=== PATIENT | female | born 1995 | race Caucasian/White ===

== ENCOUNTER 2016-12-25 14:01 | Emergency (ER) | payer SELFPAY ==
[2016-12-25 14:08] VITALS: BP 106/80; PULSE 82; TEMP 98.2; BMI 25.2
[2016-12-25 14:33] LABS: URINE APPEARANCE CLOUDY; URINE BILIRUBIN NEGATIVE (NEGATIVE); URINE BLOOD 1+ (NEGATIVE); URINE COLOR AMBER; URINE GLUCOSE (UA) NEGATIVE (NEGATIVE); URINE KETONE NEGATIVE (NEGATIVE); URINE NITRITE NEGATIVE (NEGATIVE)
--- NOTE | 2016-12-25 14:33 | PDOC ---
History of Present Illness - General Chief Complaint: [facility] Stated Complaint: ,TEST Time Seen by Provider: 12/25/16 14:11 - History of Present Illness Initial Comments: 12/25/16 14:47 CHIEF COMPLAINT: HISTORY OF PRESENT ILLNESS: 21 yo F with no significant PMH [facility] discomfort. Patient states "I think I might be ." Patient states LMP was 11/23/16. Patient states she used to have irregular periods "but this is like the fourth time it would be coming in a row. " She denies any nausea, vomiting, vaginal bleeding. No recent travel or sick contacts. PAST MEDICAL HISTORY: Denies past medical history FAMILY HISTORY: Denies SOCIAL HISTORY:Denies tobacco, alcohol, illicit drug use. SURGICAL HISTORY: Denies ALLERGIES: No known drug allergies REVIEW OF SYSTEMS General/Constitutional: Denies fever or chills. Denies weakness, weight change. Gastrointestinal: Lower abdominal pain, "like cramping." Denies nausea, vomiting , diarrhea or constipation. Denies rectal bleeding. Genitourinary: Denies dysuria, frequency, or change in urination. Musculoskeletal: Denies joint or muscle swelling or pain. Denies neck or back pain. PHYSICAL EXAM General Appearance: Well-appearing, appropriately dressed. No apparent distress. HEENT: EOMI, PERRLA. No conjunctival pallor. No photophobia, scleral icterus. Respiratory/Chest: Lungs CTAB. Cardiovascular: RRR. S1, S2. Gastrointestinal/Abdominal: Normal bowel sounds. Abdomen soft, non-distended. No tenderness or rebound tenderness. No organomegaly, pulsatile mass, guarding , hernia, hepatomegaly, splenomegaly. Musculoskeletal/Extremities: Normal inspection. FROM of all extremities, normal capillary refill. Pelvis Stable. No CVA tenderness. No tenderness to extremities, pedal edema, swelling, erythema or deformity. Integumentary: Appropriate color, dry, warm. 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 Fully oriented, alert. Appropriate mood/affect. Motor strength 5/5. No appreciable EOM palsy, facial droop or sensory deficit. Past History - Past Medical History Allergies/Adverse Reactions: Allergies Allergy/AdvReac Type Severity Reaction Status Date / Time No Known Allergies Allergy Verified 12/25/16 14:04 Home Medications: Ambulatory Orders NK [No Known Home Medication] 10/11/15 Anemia: Yes CVA: No COPD: No - Immunization History Immunization Up to Date: Yes - Suicide/Smoking/Psychosocial Hx Smoking History: Never smoked Have you smoked in the past 12 months: No Information on smoking cessation initiated: No Hx Alcohol Use: No Drug/Substance Use Hx: No Substance Use Type: None *Physical Exam - Vital Signs Last Vital Signs Temp Pulse Resp BP Pulse Ox 98.2 F 82 16 106/80 100 12/25/16 14:04 12/25/16 14:04 12/25/16 14:04 12/25/16 14:04 12/25/16 14:04 Medical Decision Making - Medical Decision Making 12/25/16 14:52 21 yo F with no significant PMH [facility] with [facility] discomfort. -UA, UCx, Upreg test negative. UA positive for hematuria. Discussed with patient she may starting her period as it has been a month since her last period. Advised patient of signs and symptoms for return to ER; patient verbalized understanding and agrees to plan. *DC/Admit/Observation/Transfer Diagnosis at time of Disposition: Abdominal pain Qualifiers: Abdominal location: lower abdomen, unspecified Qualified Code(s): R10.30 - Lower abdominal pain, unspecified - Referrals - Patient Instructions Printed Discharge Instructions: Myths and Truths About the Menstrual Cycle, Painful Menstrual Periods Additional Instructions: Your test was negative today. As discussed, you may take ibuprofen for your abdominal cramping. If pain persists for more than a week, please follow up with your OBGYN. If you develops any significant vaginal bleeding ( more than one soaked pad an hour), severe pain to one side of your stomach, or any new or worsening symptoms, please return to the ER. - Post Discharge Activity
[2016-12-25 14:34] LABS: URINE PROTEIN 1+ (NEGATIVE)
[2016-12-25 14:37] LABS: URINE MUCUS MANY; URINE RBC 17; URINE WBC 3
[2016-12-25 18:01] LABS: URINE LEUK ESTERASE Negative (NEGATIVE)
== END 2016-12-25 14:58 | disposition home or self-care (01) ==
LOC: JERFT 14:01
DX: R10.30 Lower abdominal pain, unspecified (principal); Z32.02 Encounter for pregnancy test, result negative
CPT/HCPCS: 81003; 81015; 84703; 87086; 99281-25

== ENCOUNTER 2017-03-08 21:49 | Emergency (ER) | payer SELFPAY ==
[2017-03-08 23:10] VITALS: BP 92/62; PULSE 86; TEMP 98.9; BMI 23.2
[2017-03-09] MEDS ORDERED: IBUPROFEN 400 MG TABLET (FP) PO ONE ×2 (00:33→00:34)
--- NOTE | 2017-03-09 00:33 | PDOC ---
History of Present Illness - General Chief Complaint: Chest Pain Stated Complaint: CHEST TIGHTNESS Time Seen by Provider: 03/09/17 00:16 History Source: Patient Exam Limitations: No Limitations - History of Present Illness Travel History: No Initial Comments: 03/09/17 00:54 21-year-old female with no medical history presents to the emergency department complaining of right sided anterior chest discomfort. Pain is described as 4/10 dull nonradiating intermittent discomfort 3 days. The pain is exacerbated on deep inspiration and alleviated at rest. Patient denies nausea/vomiting, fever/ chills, headache, dizziness, lightheadedness, facial pain, rhinorrhea, nasal congestion, earaches, cough, sore throat, neck stiffness/pain, back pains, shortness of breath, abdominal pains, flank pains, urinary symptoms. Patient states the pain today is 3/10 dull non radiating discomfort but has had 5/10 dull pain recent pain 3 days ago. 03/09/17 01:28 Reassessed: Pt states after the Motrin, she feels fine. Timing/Duration: reports: intermittent Past History - Past Medical History Allergies/Adverse Reactions: Allergies Allergy/AdvReac Type Severity Reaction Status Date / Time No Known Allergies Allergy Verified 12/25/16 14:04 Home Medications: Ambulatory Orders NK [No Known Home Medication] 10/11/15 Anemia: Yes CVA: No COPD: No - Immunization History Immunization Up to Date: Yes - Suicide/Smoking/Psychosocial Hx Smoking History: Never smoked Have you smoked in the past 12 months: No Information on smoking cessation initiated: No Hx Alcohol Use: No Drug/Substance Use Hx: No Substance Use Type: None Review of Systems - Review of Systems Able to Perform ROS?: Yes Comments:: 03/09/17 00:55 CONSTITUTIONAL: Absent: fever, chills, diaphoresis, generalized weakness, malaise, loss of appetite HEENT: Absent: rhinorrhea, nasal congestion, throat pain, throat swelling, difficulty swallowing, mouth swelling, ear pain, eye pain, visual Changes CARDIOVASCULAR: +chest pain Absent: loss of consciousness, palpitations, irregular heart rate, peripheral edema RESPIRATORY: Absent: cough, shortness of breath, dyspnea with exertion, orthopnea, wheezing, stridor, hemoptysis GASTROINTESTINAL: Absent: abdominal pain, abdominal distension, nausea, vomiting, diarrhea, constipation, melena, hematochezia GENITOURINARY: Absent: dysuria, frequency, urgency, hesitancy, hematuria, flank pain, genital pain MUSCULOSKELETAL: Absent: myalgia, arthralgia, joint swelling SKIN: Absent: rash, itching, pallor HEMATOLOGIC/IMMUNOLOGIC: Absent: easy bleeding, easy bruising, lymphadenopathy, frequent infections ENDOCRINE: Absent: unexplained weight gain, unexplained weight loss, heat intolerance, cold intolerance Is the patient limited Irish proficient: No *Physical Exam - Vital Signs Last Vital Signs Temp Pulse Resp BP Pulse Ox 98.9 F 86 18 92/62 100 03/08/17 22:53 03/08/17 22:53 03/08/17 22:53 03/08/17 22:53 03/08/17 22:53 - Physical Exam Comments: 03/09/17 00:55 GENERAL: Well developed, well nourished. Awake and alert. No acute distress. HEENT: Normocephalic, atraumatic. PERRLA, EOMI. No conjunctival pallor. Sclera are non- icteric. Moist mucous membranes. Oropharynx is clear. NECK: Supple. Full ROM. No JVD. Carotid pulses 2+ and symmetric, without bruits. No thyromegaly. No lymphadenopathy. CARDIOVASCULAR: Regular rate and rhythm. No murmurs, rubs, or gallops. Distal pulses are 2+ and symmetric. PULMONARY: No evidence of respiratory distress. Lungs clear to auscultation bilaterally. No wheezing, rales or rhonchi. ABDOMINAL: Soft. Non-tender. Non-distended. No rebound or guarding. No organomegaly. Normoactive bowel sounds. MUSCULOSKELETAL Normal range of motion at all joints. No bony deformities or tenderness. No CVA tenderness. EXTREMITIES: No cyanosis. No clubbing. No edema. No calf tenderness. SKIN: Warm and dry. Normal capillary refill. No rashes. No jaundice. *DC/Admit/Observation/Transfer Diagnosis at time of Disposition: Chest pain, muscular - Discharge Dispostion Disposition: HOME Condition at time of disposition: Stable Admit: No - Referrals - Patient Instructions Printed Discharge Instructions: DI for Atypical Chest Pain Additional Instructions: Rest Increased fluids Tylenol alternating with Motrin as needed for pain Return to the ER for severe/persistent/worsening symptoms - Post Discharge Activity
--- NOTE | 2017-03-10 14:08 | EKG ---
Test Reason : Blood Pressure : / mmHG Vent. Rate : 081 BPM Atrial Rate : 081 BPM P-R Int : 108 ms QRS Dur : 074 ms QT Int : 356 ms P-R-T Axes : 052 055 021 degrees QTc Int : 413 ms SINUS RHYTHM WITH SINUS ARRHYTHMIA WITH SHORT [place] CANNOT RULE OUT ANTERIOR INFARCT , AGE UNDETERMINED ABNORMAL ECG WHEN COMPARED WITH ECG OF 12-MAY-2012 14:10, NO SIGNIFICANT CHANGE WAS FOUND Confirmed by JAN ISAACS MD ([id number]) on 03/10/2017 2:08:20 PM Referred By: Confirmed By:JAN ISAACS MD
== END 2017-03-09 01:31 | disposition home or self-care (01) ==
LOC: JERFT 21:49
DX: R07.9 Chest pain, unspecified (principal)
CPT/HCPCS: 93005; 93010; 99281-25

== ENCOUNTER 2017-03-27 13:43 | Emergency (ER) | payer SELFPAY ==
[2017-03-27 13:47] VITALS: BP 105/65; PULSE 87; TEMP 98.1; BMI 24.2
[2017-03-27 15:14] LABS: HCG,QUALITATIVE URINE NEGATIVE; URINE APPEARANCE CLEAR; URINE BILIRUBIN NEGATIVE (NEGATIVE); URINE BLOOD NEGATIVE (NEGATIVE); URINE COLOR AMBER; URINE GLUCOSE (UA) NEGATIVE (NEGATIVE); URINE KETONE NEGATIVE (NEGATIVE); URINE LEUK ESTERASE NEGATIVE (NEGATIVE); URINE NITRITE NEGATIVE (NEGATIVE); URINE PROTEIN NEGATIVE (NEGATIVE)
--- NOTE | 2017-03-27 15:42 | PDOC ---
History of Present Illness - General Chief Complaint: ,Possible Stated Complaint: LAB VARIANCE Time Seen by Provider: 03/27/17 15:06 History Source: Patient Exam Limitations: No Limitations - History of Present Illness Initial Comments: 03/27/17 16:10 Patient is a 21-year-old female with no past medical history presents to the emergency department with 2 days of nausea and vomiting patient states she believes she may be . Last menstrual period was 02/28/2017 denies dysuria, hematuria, frequency, urgency, diarrhea, cough. Patient states that she also feels like her blood counts may be low and is requesting a CBC to check her anemia at this time. Past History - Travel Traveled outside of the country in the last 30 days: No Close contact w/someone who was outside of country & ill: No - Past Medical History Allergies/Adverse Reactions: Allergies Allergy/AdvReac Type Severity Reaction Status Date / Time No Known Allergies Allergy Verified 03/27/17 13:45 Home Medications: Ambulatory Orders Ondansetron [Zofran Odt -] 4 mg SL TID #10 od.tablet 03/27/17 Anemia: Yes CVA: No COPD: No Other medical history: OVARIAN CYSTS. - Immunization History Immunization Up to Date: Yes - Suicide/Smoking/Psychosocial Hx Smoking History: Never smoked Have you smoked in the past 12 months: No Hx Alcohol Use: No Drug/Substance Use Hx: No Substance Use Type: None Review of Systems - Review of Systems Able to Perform ROS?: Yes Comments:: 03/27/17 23:11 CONSTITUTIONAL: Present: malaise Absent: fever, chills, diaphoresis, generalized weakness, loss of appetite RESPIRATORY: Absent: cough, shortness of breath, dyspnea with exertion, orthopnea, wheezing, stridor, hemoptysis GASTROINTESTINAL: Present: nausea, vomiting Absent: abdominal pain, abdominal distension, nausea, vomiting, diarrhea, constipation, melena, hematochezia GENITOURINARY: Absent: dysuria, frequency, urgency, hesitancy, hematuria, flank pain, genital pain MUSCULOSKELETAL: Absent: myalgia, arthralgia, joint swelling SKIN: Absent: rash, itching, pallor HEMATOLOGIC/IMMUNOLOGIC: Absent: easy bleeding, easy bruising, lymphadenopathy, frequent infections NEUROLOGIC: Absent: headache, focal weakness or paresthesias, dizziness, unsteady gait, seizure, mental status changes, bladder or bowel incontinence PSYCHIATRIC: Absent: anxiety, depression, suicidal or homicidal ideation, hallucinations. Is the patient limited Upper Sorbian proficient: No *Physical Exam - Vital Signs Last Vital Signs Temp Pulse Resp BP Pulse Ox 98.1 F 87 18 105/65 99 03/27/17 13:44 03/27/17 13:44 03/27/17 13:44 03/27/17 13:44 03/27/17 13:44 - Physical Exam Comments: 03/27/17 16:12 GENERAL: Well developed, well nourished. Awake and alert. No acute distress. HEENT: Normocephalic, atraumatic. PERRLA, EOMI. No conjunctival pallor. Sclera are non- icteric. Moist mucous membranes. Oropharynx is clear. NECK: Supple. Full ROM. No JVD. Carotid pulses 2+ and symmetric, without bruits. No thyromegaly. No lymphadenopathy. CARDIOVASCULAR: Regular rate and rhythm. No murmurs, rubs, or gallops. Distal pulses are 2+ and symmetric. PULMONARY: No evidence of respiratory distress. Lungs clear to auscultation bilaterally. No wheezing, rales or rhonchi. ABDOMINAL: Soft. Non-tender. Non-distended. No rebound or guarding. No organomegaly. Normoactive bowel sounds. MUSCULOSKELETAL Normal range of motion at all joints. No bony deformities or tenderness. No CVA tenderness. EXTREMITIES: No cyanosis. No clubbing. No edema. No calf tenderness. SKIN: Warm and dry. Normal capillary refill. No rashes. No jaundice. NEUROLOGICAL: Alert, awake, appropriate. Cranial nerves 2-12 intact. No deficits to light touch and temperature in face, upper extremities and lower extremities. No motor deficits in the in face, upper extremities and lower extremities. Normoreflexic in the upper and lower extremities. Normal speech. Toes are down- going bilaterally. Gait is normal without ataxia. PSYCHIATRIC: Cooperative. Good eye contact. Appropriate mood and affect. ED Treatment Course - LABORATORY CBC & Chemistry Diagram: 03/27/17 15:29 - ADDITIONAL ORDERS Additional order review: Laboratory Results 03/27/17 15:00 Urine Color [place] Urine Appearance Clear Urine pH 6.0 Ur Specific [place] 1.020 Urine Protein Negative Urine Glucose (UA) Negative Urine Ketones Negative Urine Blood Negative Urine Nitrite Negative Urine Bilirubin Negative Urine Urobilinogen 2.0 H Ur Leukocyte Esterase Negative Urine HCG, Qual Negative Medical Decision Making - Medical Decision Making 03/27/17 16:13 Urine collected out in triage is negative for infection, . CBC shows a normal hemoglobin at 11.4. Symptoms most likely represent a viral syndrome. We will discharge home at this time. Patient understands all discharge instructions and all questions were answered. *DC/Admit/Observation/Transfer Diagnosis at time of Disposition: Gastroenteritis - Discharge Dispostion Disposition: HOME Condition at time of disposition: Good Admit: No - Prescriptions Prescriptions: Ondansetron [Zofran Odt -] 4 mg SL TID #10 od.tablet - Referrals Referrals: Cody Mills MD [Primary Care Provider] - - Patient Instructions Printed Discharge Instructions: DI for Viral Gastroenteritis -- Adult Additional Instructions: Your test today was negative. You have a stomach virus. Please drink plenty of fluids. Your prescribed Zofran as needed for nausea and vomiting. You may take this medication every 8 hours. Your blood work today was normal. Eat a bland diet including bananas, applesauce, plain rice, toast. Follow-up in the clinic as needed. Return to the emergency department if you have worsening pain, fevers, nausea vomiting, or any changes in your symptoms. - Post Discharge Activity
[2017-03-27 15:48] LABS: BASO % 0.8 % (0-2.0); EOS % 1.6 % (0-4.5); HEMATOCRIT 34.2 % (32.4-45.2); HEMOGLOBIN 11.2 GM/dL (10.7-15.3); LYMPH % 32.9 % (8-40); MCH 27.6 pg (25.7-33.7); MCHC 32.7 g/dl (32.0-36.0); MEAN CELL VOLUME 84.3 fl (80-96); MEAN PLT VOLUME 7.5 fl (7.5-11.1); MONO % 7.2 % (3.8-10.2); NEUT % 57.5 % (42.8-82.8); PLATELET COUNT 344 K/MM3 (134-434); RBC 4.06 M/mm3 (3.60-5.2); RDW 15.8 % (11.6-15.6); WHITE BLOOD COUNT 5.4 K/mm3 (4.0-10.0)
== END 2017-03-27 16:15 | disposition home or self-care (01) ==
LOC: SUPCPDRO 13:43 → JERFT 13:43
DX: K52.9 Noninfective gastroenteritis and colitis, unspecified (principal); B97.89 Other viral agents as the cause of diseases classified elsewhere
CPT/HCPCS: 36415; 81003; 84703; 85025; 87086; 99281-25